=== PATIENT | female | born 1980 | race Caucasian/White ===

== ENCOUNTER 2025-05-17 10:45 | Outpatient (AMB) | payer OTHER, SELFPAY ==
--- NOTE | 2025-05-17 10:50 | MHC.PC.OV ---
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: No Accompanied by: Self / Same As Patient Allergies erythromycin base (From Erythrocin) Allergy (Mild, Verified 05/17/25 10:57) Hives Tobacco use date assessed: 05/17/25 Dental Screening Dental Screen Date: 05/17/25 Did you have a dental visit in the last 12 months?: Yes Did you have a dental problem in the last 6 months where you did not have access to dental care?: No Was dental information given to patient?: Patient has dentist HPI HPI Comments History of Present Illness Details History of Present Illness The patient is a 44-year-old female presenting with the need for a new primary eye care professional and management of tricompartmental osteoarthritis. Tricompartmental Osteoarthritis of the Left Knee: - The patient reports mild to severe tricompartmental osteoarthritis in the left knee, with persistent pain exacerbated by physical activity. - A CT scan has been performed, but an MRI was not approved by [facility]. - The patient has attempted physical therapy in the past, but the pain persists. - The patient is considering weight loss to alleviate symptoms and has expressed interest in further physical therapy. Perimenopause: - The patient is experiencing perimenopausal symptoms and has difficulty losing weight. Suspected Sleep Apnea: - The patient reports waking up gasping for air, experiencing daytime fatigue, and headaches, suggesting possible sleep apnea. - A home sleep study has been recommended to confirm the diagnosis. Class 2 Obesity: - The patient has been diagnosed with class 2 obesity and is struggling with weight loss. - Referral to a post acute care nurse practitioner has been suggested to aid in weight management. Review of Systems - Musculoskeletal: Reports persistent left knee pain due to tricompartmental osteoarthritis. - Neurological: Reports waking up gasping for air, experiencing daytime fatigue, and headaches. - Endocrine: Reports difficulty losing weight, possibly related to perimenopause. 10-point ROS reviewed and negative except as noted in HPI Past Medical History - Tricompartmental osteoarthritis of the left knee - Perimenopause - Suspected sleep apnea - Class 2 obesity Health Maintenance - Mammogram screening recommended for preventative care. - Referral to a post acute care nurse practitioner for weight management and dietary guidance. - Home sleep study recommended to evaluate for sleep apnea. Physical Exam General: Well-appearing, in no acute distress. Vital signs: Within normal limits. HEENT: Normocephalic, atraumatic. PERRLA, EOMI. Conjunctiva clear, sclera anicteric. Oropharynx clear, mucous membranes moist. TMs intact bilaterally. Neck: Supple, no lymphadenopathy, no thyromegaly, no JVD or carotid bruits. Cardiovascular: RRR, normal S1/S2, no murmurs, rubs, or gallops. Peripheral pulses 2+ and symmetric. No edema. Respiratory: Lungs clear to auscultation bilaterally, no wheezes, rales, or rhonchi. Normal effort. Abdomen: Soft, non-tender, non-distended. Normoactive bowel sounds. No hepatosplenomegaly, no masses. MSK: Full range of motion, no joint swelling or deformity. Normal gait. Left knee with mild to severe tricompartmental osteoarthritis, chronic pain. Skin: Warm, dry, intact. No rashes, lesions, or pallor. Neuro: Alert and oriented x3. Cranial nerves II-XII intact. Strength 5/5 throughout. Sensation intact. Reflexes 2+ symmetric. Normal coordination and gait. Psych: Appropriate mood and affect. Normal judgment and insight. Reports fatigue and daytime sleepiness, possible sleep apnea. Plan 1. Tricompartmental Osteoarthritis Of The Left Knee - Plan includes obtaining an x-ray of the left knee and physical therapy to manage symptoms. 2. Perimenopause - no complaints 3. Suspected sleep study Complains of morning headaches fatigue during the day lives alone so does not know if she snores but she does say she wakes up gasping for air we will get a home sleep study Discussion Notes During the visit, we discussed the patient's need for a new primary eye care professional and management of her tricompartmental osteoarthritis. We also addressed her concerns about weight loss and potential sleep apnea. I recommended a home sleep study to evaluate for sleep apnea, which could be contributing to her weight management difficulties. Additionally, we discussed the possibility of using GLP-1 receptor agonists for weight loss if sleep apnea is confirmed. The patient was advised to document all health issues for future reference, especially considering her background. Patient was informed and verbally consented to the use of an ambient scribe for clinic note documentation during this visit. Patient Instructions - Schedule a mammogram screening as part of preventative care. - Follow up with a post acute care nurse practitioner for dietary guidance and weight management. - Complete a home sleep study to evaluate for sleep apnea. - Consider physical therapy for left knee osteoarthritis management. [facility] Medical History (Updated 05/17/25 @ 11:44 by Montana Brown MD) Knee pain Left knee pain Osteoarthritis Class 2 obesity Snoring Fatigue Family History (Updated 05/17/25 @ 10:58 by Angella Salinas MA) Father Diabetes Cancer Mother No problems noted. Social History (Updated 05/17/25 @ 10:59 by Angella Salinas MA) Housing: Condominium Alcohol intake: current Alcohol intake frequency: does not drink Patient Tobacco Use Status: Never used Tobacco service: Yes Current occupational status: employed Cognitive needs: No Hearing needs: No Vision needs: No Questionnaire PHQ-9 Over the last 2 weeks, how often have you been bothered by any of the following problems? 1. Little interest or pleasure in doing things: not at all 2. Feeling down, depressed, or hopeless: not at all 3. Trouble falling or staying asleep, or sleeping too much: not at all 4. Feeling tired or having little energy: several days 5. Poor appetite or overeating: nearly every day 6. Feeling bad about yourself - or that you are a failure or have let yourself or your family down: not at all 7. Trouble concentrating on things, such as reading the newspaper or watching television: not at all 8. Moving or speaking so slowly that other people could have noticed. Or the opposite - being so fidgety or restless that you have been moving around a lot more than usual: not at all 9. Thoughts that you would be better off or of hurting yourself in some way: not at all Total score: 4 Depression Screening Interpretation: Negative Depression Screening Done: Yes Source: Developed by Drs. Loy Jim, Cristiane Flowers, Luis Hutchinson and colleagues, with an educational luca from [employer]. Thrive Questionnaire Date Thrive assessed: 05/17/25 I am a: Patient What is your living situation today?: I have a steady place to live Within the past 12 months, did the food you bought not last and you didn't have the money to get more?: Never true Within the past 12 months, did you worry whether your food would run out before you got money to buy more?: Never true Do you have trouble paying for medicines?: No Do you have trouble getting transportation to medical appointments?: No Do you have trouble paying your heating and electricity bill?: No Do you have trouble taking care of your child, family member or friend?: No Are you currently unemployed and looking for a job?: No Are you interested in more education?: No Please select the resources that you would like help with: None Currently or been in a relationship where the following occur: I choose not to answer THRIVE Score: 0 AUDIT C Alcohol Use Questionnaire (AUDIT-C) 1. How often do you have a drink containing alcohol?: Never Total Score: 0 Score Reviewed/Action Taken: No SILVINA-7 AMB Questionnaire SILVINA-7 Date SILVINA - 7 assessed: 05/17/25 Feeling nervous, anxious, or on edge: 1 = Several days Not being able to stop or control worryin = Several days Worrying too much about different things: 1 = Several days Trouble relaxin = Several days Being so restless that it is hard to sit still: 1 = Several days Becoming easily annoyed or irritable: 2 = More than half the days Feeling afraid as if something awful might happen: 0 = Not at all Total SILVINA-7 score (0-4 normal; 5-9 mild; 10-14 moderate; 15-21 severe): 7 Source: Developed by Drs. Loy Jim, Cristiane Flowers, Luis Hutchinson and colleagues, with an educational luca from [employer]. Physical exam (Primary Care) Vital Signs: Last Vital Signs Temp 97.9 F 05/17/25 10:56 Pulse 78 05/17/25 10:56 Resp 16 05/17/25 10:56 BP 124/77 05/17/25 10:56 Pulse Ox 97 05/17/25 10:56 Oxygen Delivery Method Room Air 05/17/25 10:56 BMI result Body Mass Index 36.5 Tobacco/Smoking Status: Tobacco use Status Tobacco use date assessed 05/17/25 05/17/25 10:56 Patient Tobacco Use Status Never used Tobacco 05/17/25 10:59 PHQ-9: PHQ-9 Score PHQ-9: Total score 4 05/17/25 10:56 Depression Screening Interpretation: Negative Thrive Assessment: Date of Thrive Assessment Date Thrive assessed 05/17/25 05/17/25 10:56 Currently or been in a relationship where the following occur: I choose not to answer Coding Level of Care Code New Pt Level 3 (94941) Diagnoses Encounter to establish care Z76.89 Encounter for screening, unspecified Z13.9 Counseling, unspecified Z71.9 Screening for hypertension Z13.6 Screening for diabetes mellitus Z13.1 Screening for lipoid disorders Z13.220 Screening for depression Z13.31 Screening for HIV (human immunodeficiency virus) Z11.4 Routine screening for STI (sexually transmitted infection) Z11.3 Class 2 obesity E66.812 Fatigue R53.83 Snoring R06.83 Osteoarthritis M19.90 Left knee pain M25.562 Encounter for screening mammogram for breast cancer Z12.31 Assessment & Plan Assessment & Plan (1) Encounter to establish care: Code(s): Z76.89 - Persons encountering health services in other specified circumstances (2) Encounter for screening, unspecified: Code(s): Z13.9 - Encounter for screening, unspecified (3) Counseling, unspecified: Code(s): Z71.9 - Counseling, unspecified (4) Screening for hypertension: Code(s): Z13.6 - Encounter for screening for cardiovascular disorders (5) Screening for diabetes mellitus: Code(s): Z13.1 - Encounter for screening for diabetes mellitus (6) Screening for lipoid disorders: Code(s): Z13.220 - Encounter for screening for lipoid disorders (7) Screening for depression: Code(s): Z13.31 - Encounter for screening for depression (8) Screening for HIV (human immunodeficiency virus): Code(s): Z11.4 - Encounter for screening for human immunodeficiency virus [HIV] (9) Routine screening for STI (sexually transmitted infection): Code(s): Z11.3 - Encounter for screening for infections with a predominantly sexual mode of transmission (10) Class 2 obesity: Code(s): E66.812 - Obesity, class 2 Category: Medical (11) Fatigue: Code(s): R53.83 - Other fatigue Category: Medical (12) Snoring: Code(s): R06.83 - Snoring Category: Medical (13) Osteoarthritis: Code(s): M19.90 - Unspecified osteoarthritis, unspecified site Category: Medical (14) Left knee pain: Code(s): M25.562 - Pain in left knee Category: Medical (15) Encounter for screening mammogram for breast cancer: Code(s): Z12.31 - Encounter for screening mammogram for malignant neoplasm of breast Plan Orders: Orders Comprehensive Met. Panel Today Z13.9 - Encounter for screening, unspecified, Z76.89 - Persons encountering health services in other specified circumstances Hepatitis B Surface Antigen Today Z13.9 - Encounter for screening, unspecified, Z76.89 - Persons encountering health services in other specified circumstances Hepatitis C Antibody Today Z13.9 - Encounter for screening, unspecified, Z76.89 - Persons encountering health services in other specified circumstances Lipid Panel Today Z13.9 - Encounter for screening, unspecified, Z76.89 - Persons encountering health services in other specified circumstances HIV Ab/Ag Today Z13.9 - Encounter for screening, unspecified, Z76.89 - Persons encountering health services in other specified circumstances MM screening mammo BI Today Z12.31 - Encounter for screening mammogram for malignant neoplasm of breast PT Evaluation and Treatment Today M25.562 - Pain in left knee XR knee LT 2V Today E66.812 - Obesity, class 2, M19.90 - Unspecified osteoarthritis, unspecified site, M25.569 - Pain in unspecified knee Complete Blood Count Auto Diff Today Z13.9 - Encounter for screening, unspecified, Z76.89 - Persons encountering health services in other specified circumstances Hemoglobin A1c Today Z13.9 - Encounter for screening, unspecified, Z76.89 - Persons encountering health services in other specified circumstances Hepatitis B Surface Antibody Today Z13.9 - Encounter for screening, unspecified, Z76.89 - Persons encountering health services in other specified circumstances UA CC w/rflx Micro + Cult Today Z13.9 - Encounter for screening, unspecified, Z76.89 - Persons encountering health services in other specified circumstances Vitamin B12 and Folate Today Z13.9 - Encounter for screening, unspecified, Z76.89 - Persons encountering health services in other specified circumstances Vitamin D 1,25 dihydroxy Today Z13.9 - Encounter for screening, unspecified, Z76.89 - Persons encountering health services in other specified circumstances RT home sleep study Today E66.812 - Obesity, class 2, R06.83 - Snoring, R53.83 - Other fatigue Referrals Nutrition/Dietitian Referral E66.812 - Obesity, class 2
[2025-05-17 10:56] VITALS: BP 124/77; PULSE 78; RESP 16; TEMP 36.6; O2SAT 97; BMI 36.5
== END 2025-05-17 11:50 | disposition home or self-care (01) ==
LOC: HO.HMCFMS 10:46
PROVIDERS: Visit Provider Student in an Organized Health Care Education/Training Program
DX: M25.562 Pain in left knee (principal); R53.83 Other fatigue; E66.812 Obesity, class 2; Z68.36 Body mass index [BMI] 36.0-36.9, adult; R06.83 Snoring

== ENCOUNTER 2025-05-17 10:45 | Outpatient (REF) | payer OTHER, SELFPAY ==
--- OUTSIDE RECORDS SUMMARY | 2025-05-17 16:55 | XMS_ITS | Encounter Summary ---
Author Organization Formerly [facility] Address [address] [place] [address] Care Team Providers Care Instrumental Musician Name Role Phone Kellee Mccarthy Primary Care Provider Brigette Rodgers APRN Primary Care Provider [phone] Sobeida Man MD Unavailable [phone] Pcp, No Primary Care Provider Unavailabl e Reason for Visit * Reason Onset Date Comments Call Patient 07/21/2017 Encounter Details Date Type Department Care Team (Late st Contact Info) Description 07/21/2017 Telephone 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 PT states she have not taken medication since 5PM last night (Gabapentin and Robaxin). Pt states she is not having any SOB, no slurred speech or chest pain. Discussed with Dr. Morrell advisedpatient to go to the ER to be evaluated. Pt verbalized understanding and agreed. * Telephone Encounter - Windy Solares LPN - 07/21/2017 10:33 AM EST Returned patient call, no answer- LMTCB. * Telephone Encounter - Abby To - 07/21/2017 9:37 AM EST Patient is wondering if she can get a call back in reference to her shingles in her left arm she isgetting tingling sensations on the left side of her face. Patient wants a call back for suggestion to treatment at this time. Pain is at a pain level of 5 right now please call this patient back. documented in this encounter Plan of Treatment Not on file documented as of this encounter Visit Diagnoses Not on filedocumented in this encounter Care Teams Instrumental Musician Relationship Specialty Start Date End Date Kellee Mccarthy PA PCP - General Internal Medicine 01/19/17 11/23/17 Brigette Rodgers APRN [address] [facility] [address] [place] [address] PCP - General Family Medicine 11/24/17 11/30/24 Pcp, No PCP - General General Medicine 05/08/25 Sobeida Man MD [address] [place] [phone] (work) Independent Living Specialist Obstetrics and Gynecology 03/23/19 documented as of this encounter
--- OUTSIDE RECORDS SUMMARY | 2025-05-17 16:55 | XMS_ITS | Clinical Summary ---
Author Organization [facility] Address [address] [place] [address] Care Team Providers Care Salesperson Burial Plots Name Role Phone Sobeida Man MD Unavailable [phone] Pcp, No Primary Care Provider Unavailabl e Allergies Active Allergy Reactions Criticality Noted Date Comments Erythromycin Hives Medium 09/05/2015 Medications multivitamin Tab tablet Take 1 tablet by mouth daily. Active cholecalciferol (VITAMIN D3) 1000 units tablet Take 2,000 Units by mouth daily. Active b complex vitamins capsule Take 1 capsule by mouth daily. Active Biotin 3 MG Tab Take 1 tablet by mouth daily. Active [place] 3 1000 MG Cap capsule Take 1,000 mg by mouth daily. Administer whole. Do not break. Active Magnesium 200 MG Chew Tab Chew. Active norethindrone-ethi nyl estradiol-iron (Lo Loestrin Fe) 1 mg-10 mcg / 10 mcg tablet Lo Loestrin Fe 1 mg-10 mcg (24)/10 mcg (2) tablet Active diclofenac (CATAFLAM) 50 MG tabletIndications: Osteoarthritis of left knee, unspecified osteoarthritis type Take 1 tablet (50 mg total) by mouth 3 (three) times a day. 30 tablet 2 Active Active Problems Problem Noted Date Diagnosed Date Overweight 08/27/2014 Pain in joint, lower leg 07/26/2014 Encounters Date Type Department Care Team Description 05/08/2025 Telephone [facility] [address] [place] [address] Pcp, No Appointment from Last 3 Months Immunizations Immunization Administration Dates Next Due Covid-19 mRNA Primary Series Vaccine - Moderna 0.5 mL Full Dose 07/29/2021 Influenza, Unspecified 07/06/2020 Td 03/20/2018 Family History Medical History Relation Name Comments Heart disease Father Hyperlipidemia Father Hypertension Father Alcohol abuse Mother Relation Name Status Comments Father Mother Social History Tobacco Use Types Packs/Day Years Used Date Smoking Tobacco: Former Cigarettes 0.3 15 1 - 06/21/2018 Smokeless Tobacco: Never Alcohol Use Standard Drinks/Week Comments Yes 3 (1 standard drink = 0.6 oz pur e alcohol) Comments No Sex and Gender Information Value Date Recorded Sex Assigned at Not on file Legal Sex Female 3:12 PM EDT Gender Identity Not on file Sexual Orientation Not on file 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 Not on file Last Filed Vital Signs Vital Sign Reading Time Taken Comments Blood Pressure 128/84 02/03/2022 10:11 AM EDT Pulse 84 02/03/2022 10:11 AM EDT Temperature 36.2 C (97.1 F) 02/03/2022 10:11 AM EDT Respiratory Rate 16 02/03/2022 10:11 AM EDT Oxygen Saturation 99% 02/03/2022 10:11 AM EDT Inhaled Oxygen Concentration - - Weight 92.1 kg (203 lb) 02/03/2022 10:11 AM EDT Height 157.5 cm (5' 2 ) 02/03/2022 10:11 AM EDT Body Mass Index 37.13 02/03/2022 10:11 AM EDT Plan of Treatment Health Maintenance Due Date Last Done Comments Hepatitis C Virus Screening 1982 HIV Screening 1995 Hepatitis B Vaccines (1 of 3 - 19+ 3-dose series) 2001 HPV Vaccines (1 - 3-dose SCD M series) 2009 DTaP/Tdap/Td Vaccines (1 - Tdap) 03/21/2018 03/20/2018 Mammogram 2022 Pap Smear (Ages 21-65) 10/16/2024 10/16/2021 Influenza Vaccine 03/23/2025 07/06/2020 COVID-19 Vaccine (3 - 2024-2 6 season) 2025 07/29/2021, 12/31/2020 Pneumococcal Vaccine: Pediatric (0-5 Years) and At-Risk Patients (6 to 49 Years) Aged Out No longer eligible b ased on patient's age to complete this topic Procedures Procedure Name Priority Date/Time Associated Diagnosis Comments THINPREP PAP(CARDIOLOGY CONSULTANT) HPV SCR RFX HPV 16,18/45 Routine 10/16/2021 12:00 AM EST from Last 3 Months or Most Recently Relevant to Health Maintenance Results * ThinPrep Pap(Cobbler Upper) HPV Scr Rfx HPV 16,18/45 (10/16/2021 12:00 AM EST) Report Report [facility] Comment: Final Gynecological Cytology Report ThinPrep Pap Test, HPV Screen, Reflex HPV Genotype SPECIMEN ADEQUACY: SATISFACTORY FOR EVALUATION; ENDOCERVICAL/TRANSFORMATION ZONE COMPONENT ABSENT/INSUFFICIENT . INTERPRETATION: NEGATIVE FOR INTRAEPITHELIAL LESION OR MALIGNANCY. Electronically Signed: Aaron Sr CT (ASCP) CLINICAL INFORMATION: LMP: 09/27/2021 Clinical History: RTN Specimen Source: Cervix, Endocervix HPV RESULTS: HPV mRNA E6/E7 [id number] Approved: 10/18/21 Negative REF RANGE: Negative CPT Codes: 01860 ICD Codes: Z12.4 Other 10/16/2021 10/17/2021 8:0 9 PM EST us Sobeida Man MD LAB AMB PATH/CYTO ORDERABLES Fi nal Result [facility] [address], [place] from Last 3 Months or Most Recently Relevant to Health Maintenance Insurance [facility] Care Teams Salesperson Burial Plots Relationship Specialty Start Date End Date Pcp, No PCP - General General Medicine 05/08/25 Sobeida Man MD [address] [place] [id number] Protection Manager Obstetrics and Gynecology 03/23/19
--- OUTSIDE RECORDS SUMMARY | 2025-05-17 16:55 | XMS_ITS | Encounter Summary ---
Author Organization [address] [address] Care Team Providers Care Patient Observer Name Role Phone Kellee Mccarthy Primary Care Provider [phone] Brigette Rodgers APRN Primary Care Provider [phone] Sobeida Man MD Unavailable [phone] Pcp, No Primary Care Provider Unavailabl e Encounter Details Date Type Department Care Team (Late st Contact Info) Description 07/18/2017 Scanned Document [address] [place] [address] Provider, Generic Social History Tobacco Use Types Packs/Day Years Used Date Smoking Tobacco: Former Alcohol Use Standard Drinks/Week Comments Yes 0 (1 standard drink = 0.6 oz pur e alcohol) Comments Unknown Sex and Gender Information Value Date Recorded Sex Assigned at Not on file Legal Sex Female 3:12 PM EDT Gender Identity Not on file Sexual Orientation Not on file 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 Not on file documented as of this encounter Plan of Treatment Not on file documented as of this encounter Visit Diagnoses Not on filedocumented in this encounter Care Teams Patient Observer Relationship Specialty Start Date End Date Kellee Mccarthy PA PCP - General Internal Medicine 01/19/17 11/23/17 Brigette Rodgers APRN [address] [place] [address] PCP - General Family Medicine 11/24/17 11/30/24 Pcp, No PCP - General General Medicine 05/08/25 Sobeida Man MD [address] [place] [id number] Perishable Fruit Inspector Obstetrics and Gynecology 03/23/19 documented as of this encounter
--- OUTSIDE RECORDS SUMMARY | 2025-05-17 16:55 | XMS_ITS | Encounter Summary ---
Author Organization [facility] Address [address] [place] [id number] Care Team Providers Care Cognos Lead Name Role Phone Sobeida Man MD Unavailable [phone] Pcp, No Primary Care Provider Unavailabl e Reason for Visit * Reason Onset Date Comments Appointment 05/08/2025 Encounter Details Date Type Department Care Team (Late st Contact Info) Description 05/08/[address] [address] Pcp, No Appointment Social History Tobacco Use Types Packs/Day Years [...] on filedocumented in this encounter Care Teams Cognos Lead Relationship Specialty Start Date End Date Pcp, No PCP - General General Medicine 05/08/25 Sobeida Man MD [address] [place] [id number] [address] Rander Obstetrics and Gynecology 03/23/19 documented as of this encounter
--- OUTSIDE RECORDS SUMMARY | 2025-05-17 16:55 | XMS_ITS ---
Author Name [facility] Organization Unknown Encounters Encounter Type Encounter Reason Primary Diagnosis Location Date Ambulatory Pain in left knee [facility] 02/03/2022 [facility] 10/16/2021 Care Team Organization Name Specialty Phone Email Start Date End [facility] NO PCP Primary Care 05/08/2025 [facility] Not Found Primary Care 09/12/2023 [facility] 06/29/2023 12/21/2024 [facility] Brigette Rodgers NP Primary Care 02/03/2022 022 [facility] Brigette Rodgers Primary Care 02/03/2022 [facility] 10/20/2021 04/10/2024 [facility] 10/16/2021 10/16/2021
--- OUTSIDE RECORDS SUMMARY | 2025-05-17 16:55 | XMS_ITS | Clinical Summary ---
Author Organization [facility] Address [address] [place], [place] [id number] Care Team Providers Care Technician Trainee Name Role Phone Unavailable Primary Care Provider Unavailabl e Social History Tobacco Use Types Packs/Day Years Used Date Smoking Tobacco: Never Assessed Sex and Gender Information Value Date Recorded Sex Assigned at Not on file Gender Identity Not on file Sexual Orientation Not on file Plan of Treatment Not on file
[2025-05-17 17:56] LABS: MANUAL DIFF FLAG NO
[2025-05-17 18:11] LABS: Appearance Urine Clear; Glucose Urine UA Negative (Negative); Hematocrit 41.1 % (37.0-47.0); Hemoglobin 13.9 g/dl (12.0-16.0); Imm Gran Abs Auto 0.02 X10*3/uL (0.00-0.03); Imm Gran Pct Auto 0.2 % (0.0-0.4); Lymphocytes Absolute Auto 2.2 X10*3/uL (1.2-4.9); Mean Corpuscular HGB Conc 33.8 g/dl (31.0-35.0); Mean Corpuscular Hemoglobin 29.8 pg (27.0-33.0); Mean Corpuscular Volume 88.0 fL (80.0-98.0); NRBC Abs Auto 0.000 X10*3/uL (0.0-0.012); NRBC Pct Auto 0.0 /100WBC (0.0-0.2); PH 6.5 (5.0-9.0); Platelet Count 326 X10*3/uL (160-400); Red Blood Count 4.67 X10*6/uL (4.20-5.50); Specific Gravity - Urine <= 1.005 (1.005-1.025); White Blood Count 8.7 X10*3/uL (4.8-10.8)
[2025-05-17 18:14] LABS: Total Hemoglobin (HGBA1C) 3605.8882 umol/L
[2025-05-17 18:35] LABS: Alanine Aminotransferase 28 U/L (0-31); Albumin Level 4.5 g/dL (3.5-5.0); Alkaline Phosphatase 77 U/L (39-117); Anion Gap 12 (12-20); Aspartate Amino Transferase 29 U/L (5-31); Blood Urea Nitrogen 13 mg/dL (9-16); Calcium 9.5 mg/dL (8.4-10.2); Carbon Dioxide 27 mmol/L (22-29); Chloride 106 mmol/L (96-108); Cholesterol 201 mg/dL (<200); Estimated Glomerular Filt Rate > 60; HDL Cholesterol 55 mg/dL (>40); Potassium 4.7 mmol/L (3.3-5.1); Sodium 140 mmol/L (135-145); Total Protein 7.3 g/dL (6.5-8.0); Triglycerides 115 mg/dL (<150)
[2025-05-17 19:04] LABS: Folate 7.1 ng/mL (> or = 4.0); Vitamin B12 1418 pg/mL (200-900)
[2025-05-18 08:43] LABS: HBS Num1 2.63 mIU/mL (0-7.99); HBsAGNum1 0.36 S/CO (0.00-0.99); HIV Num 1 0.09 S/CO (0.00-0.99); Hepatitis B Surface Antigen Negative (Negative); ~HepC Num1 0.09 S/CO (0.00-0.79); ~Hepatitis B Surface Antibody NONREACTIVE (Nonreactive); ~Hepatitis C Antibody Nonreactive (Nonreactive)
[2025-05-21 19:33] LABS: VITAMIN D (1,25 OH) D3 69 pg/mL; Vit D (1,25-Dihydroxy) Total 69 pg/mL (18-72); Vitamin D (1,25 OH) D2 <8 pg/mL
== END 2025-05-17 10:46 | disposition home or self-care (01) ==
LOC: HO.HKASLDS 10:45
PROVIDERS: Visit Provider Student in an Organized Health Care Education/Training Program
DX: Z76.89 Persons encountering health services in other specified circumstances (principal); Z11.4 Encounter for screening for human immunodeficiency virus [HIV]; Z13.1 Encounter for screening for diabetes mellitus; R53.83 Other fatigue; R06.83 Snoring; E66.812 Obesity, class 2; M25.562 Pain in left knee; M25.569 Pain in unspecified knee; M19.90 Unspecified osteoarthritis, unspecified site; Z68.36 Body mass index [BMI] 36.0-36.9, adult; Z71.3 Dietary counseling and surveillance
CPT/HCPCS: 36415; 80053; 80061; 81003; 82607; 82652; 82746; 83036; 85025; 86706; 86803; 87340; 87389; 99202

== ENCOUNTER 2025-05-31 13:47 | Outpatient (AMB) | payer OTHER, SELFPAY ==
[2025-05-31 13:49] VITALS: BP 122/76; PULSE 72; TEMP 36.8; O2SAT 97; BMI 35.9
--- NOTE | 2025-05-31 13:49 | MHC.PC.OV ---
Vital Signs 05/31/25 13:49 Height 5 ft 1.81 in Weight 195 lb BMI 35.9 BP 122/76 Blood Pressure Location Rt brachial Position Sitting Pulse 72 Pulse Source Pulse Oximeter Temp 98.2 F Temp Source Oral Pulse Oximetry (%) 97 Oxygen Delivery Method Room Air Intake Visit Reasons: 2 wk f/u Sales Marketing Coordinator Required: No Accompanied by: Self / Same As Patient Allergies erythromycin base (From Erythrocin) Allergy (Mild, Verified 05/31/25 13:49) Hives Tobacco use date assessed: 05/31/25 Dental Screening Dental Screen Date: 05/31/25 Did you have a dental visit in the last 12 months?: Yes Did you have a dental problem in the last 6 months where you did not have access to dental care?: No Was dental information given to patient?: Patient has dentist HPI HPI Comments History of Present Illness Details History of Present Illness The patient is a 44-year-old female presenting for a follow-up on lab results and weight management. Hyperlipidemia: - Cholesterol level is 201 mg/dL, slightly above the desired level of below 200 mg/dL. - LDL cholesterol is 123 mg/dL, which should be below 100 mg/dL. Elevated Vitamin B12 levels: - Vitamin B12 level is 1418 pg/mL, elevated due to supplements. Obstructive Sleep Apnea (suspected): - Home sleep study pending to confirm diagnosis. Weight management: - Considering GLP-1 receptor agonists and taking natural peptides. - Referred to medical weight clinic for comprehensive weight loss approach. Review of Systems - General: Denies fatigue, reports good overall health. - Cardiovascular: Denies chest pain or palpitations. - Respiratory: Denies dyspnea or cough. - Neurological: Denies headaches or dizziness. 10-point ROS reviewed and negative except as noted in HPI Past Medical History Health Maintenance - Mammogram scheduled for next month. - Home sleep study pending. - Data Abstractor appointment scheduled for July. Physical Exam General: Well-appearing, in no acute distress. Vital signs: Within normal limits. HEENT: Normocephalic, atraumatic. PERRLA, EOMI. Conjunctiva clear, sclera anicteric. Oropharynx clear, mucous membranes moist. TMs intact bilaterally. Neck: Supple, no lymphadenopathy, no thyromegaly, no JVD or carotid bruits. Cardiovascular: RRR, normal S1/S2, no murmurs, rubs, or gallops. Peripheral pulses 2+ and symmetric. No edema. Respiratory: Lungs clear to auscultation bilaterally, no wheezes, rales, or rhonchi. Normal effort. Abdomen: Soft, non-tender, non-distended. Normoactive bowel sounds. No hepatosplenomegaly, no masses. MSK: Full range of motion, no joint swelling or deformity. Normal gait. Skin: Warm, dry, intact. No rashes, lesions, or pallor. Neuro: Alert and oriented x3. Cranial nerves II-XII intact. Strength 5/5 throughout. Sensation intact. Reflexes 2+ symmetric. Normal coordination and gait. Psych: Appropriate mood and affect. Normal judgment and insight. Plan 1. Hyperlipidemia - Monitor cholesterol levels and consider lifestyle modifications to reduce LDL cholesterol. 2. Elevated Vitamin B12 Levels - Continue monitoring B12 levels; no immediate concern due to water-soluble nature of vitamin. 3. Obstructive Sleep Apnea (Suspected) - Complete home sleep study to confirm diagnosis and determine further management. 4. Weight Management - Continue current regimen of natural peptides; monitor for side effects. - Attend medical weight clinic for comprehensive weight management plan. Discussion Notes During the visit, we discussed the patient's lab results, including elevated cholesterol and Vitamin B12 levels. I explained that the elevated B12 is not a concern due to its water-soluble nature. We also talked about the importance of completing the home sleep study to assess for obstructive sleep apnea. The patient is considering GLP-1 receptor agonists for weight management and has been referred to a medical weight clinic for a comprehensive approach. We discussed the potential side effects of GLP-1 and the importance of maintaining a balanced diet and exercise regimen. Patient was informed and verbally consented to the use of an ambient scribefor clinic note documentation during this visit. Patient Instructions - Continue taking current supplements and monitor for any side effects. - Complete the home sleep study as scheduled. - Attend the scheduled booth cleaner appointment in July. - Follow up with the medical weight clinic for a comprehensive weight management plan. Total time spent caring for the patient today was 30 minutes. This includes time spent before the visit reviewing the chart, time spent documenting, and time spent reviewing laboratory results, diagnostic imaging, medications, performing a medically necessary evaluation, counseling on diagnoses, care coordination, ordering appropriate tests, ordering appropriate medications. COUNT INCLUDES THE [facility] Medical History Knee pain Left knee pain Osteoarthritis Class 2 obesity Snoring Fatigue Family History Father Diabetes Cancer Mother No problems noted. Social History Housing: Condominium Alcohol intake: current Alcohol intake frequency: does not drink Patient Tobacco Use Status: Never used Tobacco service: Yes Current occupational status: employed Cognitive needs: No Hearing needs: No Vision needs: No Questionnaire PHQ-9 Over the last 2 weeks, how often have you been bothered by any of the following problems? 1. Little interest or pleasure in doing things: not at all 2. Feeling down, depressed, or hopeless: not at all 3. Trouble falling or staying asleep, or sleeping too much: not at all 4. Feeling tired or having little energy: several days 5. Poor appetite or overeating: nearly every day 6. Feeling bad about yourself - or that you are a failure or have let yourself or your family down: not at all 7. Trouble concentrating on things, such as reading the newspaper or watching television: not at all 8. Moving or speaking so slowly that other people could have noticed. Or the opposite - being so fidgety or restless that you have been moving around a lot more than usual: not at all 9. Thoughts that you would be better off or of hurting yourself in some way: not at all Total score: 4 Depression Screening Interpretation: Negative Depression Screening Done: Yes Source: Developed by Drs. Loy Jim, Cristiane Flowers, Luis Hutchinson and colleagues, with an educational luca from [employer]. Thrive Questionnaire Date Thrive assessed: 05/31/25 I am a: Patient What is your living situation today?: I have a steady place to live Within the past 12 months, did the food you bought not last and you didn't have the money to get more?: Never true Within the past 12 months, did you worry whether your food would run out before you got money to buy more?: Never true Do you have trouble paying for medicines?: No Do you have trouble getting transportation to medical appointments?: No Do you have trouble paying your heating and electricity bill?: No Do you have trouble taking care of your child, family member or friend?: No Are you currently unemployed and looking for a job?: No Are you interested in more education?: No Please select the resources that you would like help with: None Currently or been in a relationship where the following occur: I choose not to answer THRIVE Score: 0 AUDIT C Alcohol Use Questionnaire (AUDIT-C) 1. How often do you have a drink containing alcohol?: Never Total Score: 0 Score Reviewed/Action Taken: No SILVINA-7 AMB Questionnaire SILVINA-7 Date SILVINA - 7 assessed: 05/31/25 Feeling nervous, anxious, or on edge: 1 = Several days Not being able to stop or control worryin = Several days Worrying too much about different things: 1 = Several days Trouble relaxin = Several days Being so restless that it is hard to sit still: 1 = Several days Becoming easily annoyed or irritable: 2 = More than half the days Feeling afraid as if something awful might happen: 0 = Not at all Total SILVINA-7 score (0-4 normal; 5-9 mild; 10-14 moderate; 15-21 severe): 7 Source: Developed by Drs. Loy Jim, Cristiane Flowers, Luis Hutchinson and colleagues, with an educational luca from [employer]. Physical exam (Primary Care) Vital Signs: Last Vital Signs Temp 98.2 F 05/31/25 13:49 Pulse 72 05/31/25 13:49 BP 122/76 05/31/25 13:49 Pulse Ox 97 05/31/25 13:49 Oxygen Delivery Method Room Air 05/31/25 13:49 BMI result Body Mass Index 35.9 Tobacco/Smoking Status: Tobacco use Status Tobacco use date assessed 05/31/25 05/31/25 13:55 Patient Tobacco Use Status Never used Tobacco 05/31/25 13:55 PHQ-9: PHQ-9 Score PHQ-9: Total score 4 05/31/25 13:55 Depression Screening Interpretation: Negative Thrive Assessment: Date of Thrive Assessment Date Thrive assessed 05/31/25 05/31/25 13:55 Currently or been in a relationship where the following occur: I choose not to answer Coding Level of Care Code Est Pt Level 4 (14028) Diagnoses Hyperlipidemia E78.5 Elevated vitamin B12 level R79.89 Obstructive sleep apnea G47.33 Assessment & Plan Assessment & Plan (1) Hyperlipidemia: Code(s): E78.5 - Hyperlipidemia, unspecified (2) Elevated vitamin B12 level: Code(s): R79.89 - Other specified abnormal findings of blood chemistry (3) Obstructive sleep apnea: Code(s): G47.33 - Obstructive sleep apnea (adult) (pediatric) Plan Orders: Referrals Medical Weight Management Referral E66.812 - Obesity, class 2
== END 2025-05-31 14:16 | disposition home or self-care (01) ==
LOC: HO.HMCFMS 13:48
PROVIDERS: PCP Student in an Organized Health Care Education/Training Program; Visit Provider Student in an Organized Health Care Education/Training Program
DX: E78.5 Hyperlipidemia, unspecified (principal); R79.89 Other specified abnormal findings of blood chemistry; G47.33 Obstructive sleep apnea (adult) (pediatric)

== ENCOUNTER → 2025-05-31 13:47 | Outpatient (BNVA) | payer OTHER, SELFPAY | PROVIDERS: Visit Provider Student in an Organized Health Care Education/Training Program | DX: E78.5 Hyperlipidemia, unspecified (principal); R79.89 Other specified abnormal findings of blood chemistry; G47.33 Obstructive sleep apnea (adult) (pediatric); Z13.31 Encounter for screening for depression; Z13.39 Encounter for screening examination for other mental health and behavioral disorders | CPT/HCPCS: 96127; 99212 ==

== ENCOUNTER 2025-07-04 14:51 | Outpatient (REF) | payer OTHER, SELFPAY ==
--- OUTSIDE RECORDS SUMMARY | 2025-07-04 18:14 | XMS_ITS | Data Portability ---
Author Organization [place] - [facility], [facility] Address [address] [place] [address] Assessment No assessment recorded. Plan of Treatment Reminders Order Date Submit Date Provider Last Modified By Organization Details Last Modified Time Details Appointments None record ed. Lab urinal ysis, dipsti ck 2021 022 [email or web address] on In-Office Order, Internal Use Only DO Not Attach Compendium DO Not Attach Compendium, Do Not Delete/merge, [id number] 2 15:50:34 pap, IG + HPV 2021 022 [facility], later [facility], [address] [place], [address] 2 08:06:31 pregna ncy test, urine 2019 020 [email or web address] on In-Office Order, Internal Use Only DO Not Attach Compendium DO Not Attach Compendium, Do Not Delete/merge, [id number] 0 15:25:02 urinal ysis, dipsti ck 2018 019 [email or web address] on In-Office Order, Internal Use Only DO Not Attach Compendium DO Not Attach Compendium, Do Not Delete/merge, [id number] 9 08:52:47 Referral None record ed. Procedures None record ed. Surgeries None record ed. Imaging None record ed. Medication Orders 09/11 (28) 1 mg-20 mcg (21)/7 5 mg (7) tablet 11/03/ 2020 11/03/2 020 [email or web address] on [id number], [address], [place], [address], 0 15:30:16 Patient TargetsNo targets recorded. Patient Instructions Encounter Date Encounter Id Patient Instructions Last Modified By Organization Details Last Modified Time 10/27/2018 [id number] implant for control: care instructions [email or web address] Not available 10/28/2018 11:49:32 04/27/2019 [id number] control counseling rbillstromnelson Not available 04/27/2019 14:59:20 07/27/2019 [id number] breast self-exam: care instructions rbillstromnelson Not available 07/28/2019 08:52:47 tips to help you stay healthy rbillstromnelson Not available 07/28/2019 08:52:47 Behavioral health screening completed and reviewed with patient. Negative findings. [email or web address] Not available 07/28/2019 08:50:32 06/25/2020 [id number] secondary amenorrhea: care instructions rbillstromnelson Not available 06/25/2020 15:25:02 Risks of hormonal control reviewed including but not limited to thrombosis, embolism, pulmonary embolism, stroke, disability, sexual dysfunction and . Family history for thrombophilia reviewed. Patient understands that these risks may be increased with smoking. Patient understands that these risks may be increased within using the patch (Ortho-Evra) or the vaginal ring (Nuva-Ring) when compared to oral control pills, especially if they are obese. Risk of bone loss with Depo Provera after 5 years use also reviewed. LARCs (Mirena, Elisa and Nexplanon) reviewed and all questions answered. Barrier methods of contraception also reviewed. Patient opts for: ocp. [email or web address] Not available 06/25/2020 15:30:21 10/16/2021 [id number] breast self-exam: care instructions [email or web address] Not available 10/16/2021 15:50:34 Behavioral health screening completed and reviewed with patient. Negative findings. [email or web address] Not available 10/19/2021 19:40:19 Reason for Referral None Reported. Results Created Date Observation Date Name Description Value Unit Range Abnormal Flag Note LastModifiedBy Organization Detail LastModifiedTime 06/25/20 20 06/25/2020 pregn ramya test, urine Result negati ve Not Available In-Office Order Internal Use Only DO Not Attach Compendium DO Not Attach Compendium, Do Not Delete/merge, [id number] 06/25/2020 15:24:55 07/27/20 19 07/27/2019 urina lysis , dipst ick Interpretati on negati ve Not Available In-Office Order Internal Use Only DO Not Attach Compendium DO Not Attach Compendium, Do Not Delete/merge, [id number] 07/27/2019 15:43:30 07/27/20 19 07/27/2019 urina lysis , dipst ick Leukocytes Negati ve Not Available In-Office Order Internal Use Only DO Not Attach Compendium DO Not Attach Compendium, Do Not Delete/merge, [id number] 07/27/2019 15:43:30 07/27/20 19 07/27/2019 urina lysis , dipst ick Nitrite negati ve Not Available In-Office Order Internal Use Only DO Not Attach Compendium DO Not Attach Compendium, Do Not Delete/merge, [id number] 07/27/2019 15:43:30 07/27/20 19 07/27/2019 urina lysis , dipst ick Protein Trace Not Available In-Office Order Internal Use Only DO Not Attach Compendium DO Not Attach Compendium, Do Not Delete/merge, [id number] 07/27/2019 15:43:30 07/27/20 19 07/27/2019 urina lysis , dipst ick Glucose Negati ve Not Available In-Office Order Internal Use Only DO Not Attach Compendium DO Not Attach Compendium, Do Not Delete/merge, [id number] 07/27/2019 15:43:30 10/16/19 22 10/16/2021 HPV MRNA E6/E7 HPV MRNA E6/E7 Negati ve negati ve APTIM A HPV assay detec ts 14 high risk HPV types (HPV 16,18 ,31,3 3,35, 39,45 ,51,5 2,56, 58,59 ,66,6 8). The assay is FDA appro nadine for testi ng ThinP rep liqui d Pap vials but not FDA appro nadine for detec ting HPV in SureP ath liqui d Pap speci mens. In-ho use valid ation has shown the assay can detec t all HPV types from this [facility] e Not Available [facility] [address] [place], [address] 10/21/2021 08:06:29 10/16/19 22 10/16/2021 THINP REP PAP TEST (IMAG ER), HPV SCREE N, REFLE X HPV 16,18 /45 report Report Final Gynec ologi kandice Cytol ogy Repor t ----- ----- ----- ----- ----- ----- ----- ----- ----- ----- ----- ----- ThinP rep Pap Test, HPV Scree n, Refle x HPV Genot ype SPECI MEN ADEQU ACY: SATIS FACTO RY FOR EVALU ATION ; ENDOC ERVIC AL/TR ANSFO RMATI ON ZONE COMPO NENT ABSEN T/INS [facility] IENT . INTER PRETA TION: NEGAT JOSEPH FOR INTRA EPITH KEVAN Hernandez OR DEEJAY GUZMAN . Elect yossi Mckenzie d: Aaron Davison, [place] (ASCP ) ----- ----- ----- ----- ----- ----- ----- ----- ----- ----- ----- ----- CLINI KANDICE INFOR LIDIA N: LMP: 09/27 Clini kandice Histo ry: RTN Speci men [facility] e: Cervi x, Endoc ervix HPV RESUL TS: HPV mRNA E6/E7 33661 [id number] Appro nadine: 10/18 Negat joseph REF RANGE : Negat joseph CPT Codes : 19429 ICD Codes : Z12.4 Not Available [facility] [address] [place], [address] 10/21/2021 08:06:31 10/16/19 22 10/16/2021 urina lysis , dipst ick Interpretati on negati ve Not Available In-Office Order Internal Use Only DO Not Attach Compendium DO Not Attach Compendium, Do Not Delete/merge, [id number] 10/15/2021 10:33:22 10/16/19 22 10/16/2021 urina lysis , dipst ick Leukocytes Negati ve Not Available In-Office Order Internal Use Only DO Not Attach Compendium DO Not Attach Compendium, Do Not Delete/merge, [id number] 10/15/2021 10:33:22 10/16/19 22 10/16/2021 urina lysis , dipst ick Nitrite negati ve Not Available In-Office Order Internal Use Only DO Not Attach Compendium DO Not Attach Compendium, Do Not Delete/merge, [id number] 10/15/2021 10:33:22 10/16/19 22 10/16/2021 urina lysis , dipst ick Protein Negati ve Not Available In-Office Order Internal Use Only DO Not Attach Compendium DO Not Attach Compendium, Do Not Delete/merge, [id number] 10/15/2021 10:33:22 10/16/19 22 10/16/2021 urina lysis , dipst ick Glucose Negati ve Not Available In-Office Order Internal Use Only DO Not Attach Compendium DO Not Attach Compendium, Do Not Delete/merge, [id number] 10/15/2021 10:33:22 Result Notes None recorded. 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 Procedures Surgical History Date Name Laterality Status Provider Name and Address Organization Details Recorded Time 9 J3A-IWM completed MARIANNE FORREST MD [address], [address], [facility] 07/28/2019 08:49:43 9 [id number]-[id number] completed MARIANNE FORREST MD [address], [address], [facility] 07/28/2019 08:49:41 9 Control Implant Removal completed MARIANNE FORREST MD [address], [address] [place] [address], [place], [address], [facility] 04/27/2019 15:00:42 8 Control Implant Insertion completed MARIANNE FORREST MD [address], [address] [place] [address], [place], [address], [facility] 07/29/2018 15:15:48 8 M6A-UJBTA completed MARIANNE FORREST MD [address], [address] [place] [address], [place], [address], [facility] 07/18/2018 10:31:46 8 R5B-FPY completed MARIANNE FORREST MD [address], [address] [place] [address], [address] [place] [address], [facility] 07/18/2018 10:31:41 8 Date of Last Pap Smear completed Shauna Beach [facility] 07/27/2019 14:38:26 7 J7M-IKC completed MARIANNE FORREST MD [address], [address] [place] [address], [address] [place] [address], [facility] 06/21/2017 14:46:20 7 K6I-ARRVOAK completed MARIANNE FORREST MD [address], [address] [place] [address], [address], [facility] 06/21/2017 14:46:18 6 Q3U-JUT completed MARIANNE FORREST MD [address], [address] [place] [address], [address], [facility] 06/15/2016 17:26:32 6 K8J-VLXMD completed MARIANNE FORREST MD [address], [address] [place] [address], [address], [facility] 06/15/2016 17:26:31 6 O2P-HJA completed MARIANNE FORREST MD 175 [facility], [address] [place] [address], [place], [address], [facility] 06/15/2016 17:26:46 6 K6S-[id number] completed MARIANNE FORREST MD 175 [facility], [address] [place] [address], [address] [place] [address], [facility] 06/15/2016 17:26:34 6 E1T-ZGYKNS completed MARIANNE FORREST MD [address] [facility], [address] [place] [address], [address], [facility] 06/15/2016 17:26:28 6 U7Y-[id number] completed MARIANNE FORREST MD 175 [facility], [address] [place] [address], [place], [place], [address] [place] [address], [facility] 06/15/2016 17:26:26 Imaging Results None recorded. Procedure Notes None recorded. Medical Equipment None Reported. Allergies Allergen ID Allergen Name Allergen Category Reaction Reaction Severity Criticality Documentation Date Start Date Code Code System Note Provider Name and Address Organization Details Recorded Time 033405 erythromy raphael medicatio n hives Not available Not available 06/20/20152014 4053 RxNorm REACT ION: HIVES ; Not Available [facility] 5 09:35:05 Medications Name Sig Start Date Stop Date Status Note LastModified by Organization Details LastModified Time ibuprofen 800 mg tablet 07/18 completed Not Available Not Available Not Available valacyclovi r 1 gram tablet 07/28 completed Not Available Not Available Not Available meloxicam 15 mg tablet 06/15 completed Not Available Not Available Not Available carbamazepi ne ER 100 mg tablet,exte nded release,12 hr 07/18 completed Not Available Not Available Not Available prednisone 20 mg tablet 07/18 completed Not Available Not Available Not Available methocarbam ol 750 mg tablet 07/18 completed Not Available Not Available Not Available cephalexin 500 mg capsule 07/27 completed Not Available Not Available Not Available tacrolimus 0.1 % topical ointment 07/18 completed Not Available Not Available Not Available dexamethaso ne 4 mg tablet 07/27 completed Not Available Not Available Not Available metronidazo le 0.75 % topical cream 07/18 completed Not Available Not Available Not Available hydrocodone -homatropin e 5 mg-1.5 mg/5 mL oral solution 07/18 completed Not Available Not Available Not Available gabapentin 300 mg capsule 07/18 completed Not Available Not Available Not Available fluticasone propionate 50 mcg/actuati on nasal spray,suspe nsion 07/18 completed Not Available Not Available Not Available naproxen 500 mg tablet 07/18 completed Not Available Not Available Not Available Junel FE 09/11 (28) 1 mg-20 mcg (21)/75 mg (7) tablet Take 1 tablet every day by oral route for 84 days. 10/15 completed Not Available Not Available Not Available multivitami n active Not Available Not Available Not Available Lo Loestrin Fe 1 mg-10 mcg (24)/10 mcg (2) tablet TAKE 1 TABLET BY MOUTH EVERY DAY 07/28 completed Not Available Not Available Not Available Nexplanon 68 mg subdermal implant Inject 1 implant by subcutane ous route. 07/27 completed Not Available Not Available Not Available Vitals Date Recorded Body height Body mass index (BMI) Body weight Systolic And Diastolic Provider Name and Address Organization Details Last Updated DateTime 10/16/2021 152.4 cm 39.3 kg/m2 09710.07 g 124/88 mm[Hg] Dia Garcia [facility] 10/16/2021 15:31:22 Date Recorded Body height Body mass index (BMI) Body weight Systolic And Diastolic Provider Name and Address Organization Details Last Updated DateTime 10/27/2018 152.4 cm 35.5 kg/m2 43747.81 g 110/82 mm[Hg] Catherine Peralta [facility] 10/27/2018 15:57:33 Date Recorded Body height Body mass index (BMI) Body weight Systolic And Diastolic Provider Name and Address Organization Details Last Updated DateTime 04/27/2019 152.4 cm 35.3 kg/m2 37375.22 g 123/70 mm[Hg] Gaviota Nunez [facility] 04/27/2019 14:27:14 Date Recorded Body height Body mass index (BMI) Body weight Systolic And Diastolic Provider Name and Address Organization Details Last Updated DateTime 06/25/2020 152.4 cm 38.3 kg/m2 62146.1 g 126/68 mm[Hg] Shauna [facility] 06/25/2020 14:16:03 Date Recorded Body height Body mass index (BMI) Body weight Systolic And Diastolic Provider Name and Address Organization Details Last Updated DateTime 07/27/2019 152.4 cm 36.7 kg/m2 29320.37 g 124/72 mm[Hg] [facility] 07/27/2019 15:49:02 Social History Question Answer Notes LastModified by Organizat ion Details LastModified Time Tobacco Smoking Status [facility] 09:36:48 Do You Have Any Children? No Information not available 07/28/2019 Does Your Partner Physically Hurt You Or Threaten To Hurt You? No Information not available 06/21/2017 Has Your Partner Forced You To Have Sex Or Perform Sex Acts When You Did Not Want To? No Information not available 06/21/2017 Does Your Partner Insult, Scream At Or Talk Down To You? No Information not available 06/21/2017 Does Your Partner Control You Or Any Part Of Your Life? No Information not available 06/21/2017 Are You Afraid Of Your Partner? No No Partner 09/2021 Information not available 06/21/2017 Drug Use? No Information no t available 06/15/2016 Do You Feel Safe At Home? Yes Information not available 06/15/2016 What Was The Date Of Your Most Recent Tobacco Screening? 10/16/2021 Information not available 10/16/2021 Are You Sexually Active? No Information not available 10/19/2021 How Much Tobacco Do You Smoke? No Information not available 10/16/2021 General Stress Level High Information not available 10/16/2021 Have You Recently Traveled Abroad? No Information not available 10/16/2021 Sex: Unknown Functional Status Question Answer Note LastModified by Organizat ion Details LastModified Time What is your level of alcohol consumption? Occasional Information not available 06/15/2016 Are you currently employed? 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 [employer] 5 to 6 days a week [place] Information not available 07/18/2018 Mental Status None recorded. Family History Relationship Description Onset Age of this Age Resolved Age Notes LastModified by Organization Details LastModified Time Mother No current problems or disability [place] Not available 05/24 14:19:42 Father Malignant neoplasm of lung 0; smoker rbillstromnel son Not available 10/19/2021 19:39:14 Notes:no h/o breast, uterine , ovarian or colon CA Medical History Condition Response Other N *No Diseases or Conditions N Blood clots N Breast Cancer N Colon cancer N Benign breast disease N Depression N Lung Disease N Defects or Inherited Disease N Anesthesia Complications N Headaches/Migraines N Have you ever been on isolation N Anxiety Disorder N Arthritis N HSV N Infertility N Interstitial Cystitis N Abnormal pap N Acid Reflux (GERD) N Cancer N Stroke N Endometriosis N Fibromyalgia N Spina Bifida N HIV N Heart Problems N Sexual Dysfunction N Autoimmune disorder N Kidney or Bladder Problems N Thyroid Problems N GI Problems N Eating Disorder N Anemia N Multiple Sclerosis N Psychiatric Illness N Ovarian Cancer N Diabetes N Blood Transfusions N Bladder disease N History of MRSA N Abnormal Uterine Bleeding N Hyperlipidemia N BrCa positive N Diverticulitis N Abuse/Domestic Violence N Asthma N Hepatitis N Hypertension N Osteoporosis N Thrombophilias N Gynecological History Statement/Question Response Abnormal Pap N Current Control Method Abstinence Date of LMP 09/27/2021 Sexually Active? Yes IPV Screen Done 10/16/2021 STIs/STDs N Sexual Orientation heterosexual HPV Vaccine N Sexual Problems? N Date of Last Pap Smear 07/18/2018 Abnormal Uterine Bleeding Y Last HPV Result Negative Obstetrics History GPAL:G 0 P 0 0 0 0 Past Encounters Encounter ID Performer Location Encounter Start Date Encounter Closed Date Diagnosis/Indication Diagnosis SNOMED-CT Code Diagnosis ICD10 Code Diagnosis IMO Codes Diagnosis Note [id number] [facility] [address] [place] [address] 01/02/2015 00:00:00 [id number] MARIANNE FORREST MD [facility] [address] [place] [address] 06/15/2016 14:03:56 06/15/2016 14:43:57 Gynecologic examination 69373007 Z01.419 35 yo with normal routine manual plate filler exam. Pt desires to continue with current ocp, no hypertensi on, migraines or h/o blood clots. Pt is not currently sexually active adn does nto wish to have STI screening. Pap smear obtained - HPV reflex. Discussed calcium, vitamin D, self breast exam, weight loss.- Pap smear- ocp x 1 year supply Screening for malignant neoplasm of cervix 652241982 Z12.4 Contraception care 48852 5005 Z30.40 [id number] MARIANNE FORREST MD [facility] [address] ,[address] [address] 06/21/2017 14:16:54 06/21/2017 14:44:55 Routine gynecologic examination done 2460844538 9101 Z01.419 Pt with normal manual plate filler exam. Counseled regarding contracept joseph options, patient desires to continue with ocp's but wants to change back to Lo Lo Estrin as having PMDD with current ocp. Advised avoidance of tobacco, alcohol and drugs. Counseled regarding calcium and vitamin D, healthy diet and exercise. Pt given 1 sample of Lo Lo Estrin and card to get at [facility] [place] if not covered by insurance. Pap smear with HPV screen up to date, discussed routine screening every 3 years. Informed to RTO in 1 year for annual exam. Surveillan ce of oral contraception 043116117 Z30.41 [id number] MARIANNE FORREST MD [facility] [address] [place] [address] 07/18/2018 09:23:57 07/18/2018 09:54:41 Gynecologic examination 23272192 Z01.419 Pt with normal manual plate filler exam. Counseled regarding contracept joseph options, patient desires to change to Nexplanon after discussion . Pt advised as not currently sexually active and on ocp's ok to change prior to menses. Advised avoidance of tobacco, alcohol and drugs. Counseled regarding calcium and vitamin D, healthy diet and exercise. Pap smear with HPV screen obtained, aware of 3 year screening guidelines . Pt desires screening for STI's > order sent for gc/ct, HIV, RPR, HCV. Informed to RTO in 1 year for annual exam and for nexplanon placement when desires. Screening for malignant neoplasm of cervix 163106133 Z12.4 Z11.51 Z11.3 Venereal d isease screening 305202235 Z11.3 [id number] MARIANNE FORREST MD [facility] [place] [address] 07/28/2018 15:37:42 07/28/2018 16:16:46 Subcutaneous contraceptive implant present 131561779 Z97.8 Z30.49 [id number] MARIANNE FORREST MD [facility] [place] [address] 10/27/2018 15:44:51 10/27/2018 16:19:41 Subcutaneous contraceptive implant present 054061782 Z97.8 Z30.49 Pt with nexplanon in place. Pt overall happy with device. Per our records, discussed there is a 2 pound weight difference from when it was placed to now. Recommende d continuing to observe, dietary changes. Pt going to keep track of calories. If continues to gain weight or unable to lose weight stated only way to know is to remove nexplanon. Pt to call and have nexplanon removed if desires. RTO annual exam. [id number] MARIANNE FORREST MD [facility] [place] [address] 04/27/2019 14:14:27 04/27/2019 14:44:09 Subcutaneous contraceptive implant present 018181554 Z30.433 Pt with moodiness, irregular bleeding and not currently sexually active > desires nexplanon removal. Nexplanon removed without difficulty . Pt to expectantl y manage and will track her menses. f/u at annual. Aware to use condoms for contracept ion if sexually active. [id number] MARIANNE FORREST MD [facility] [place] [address] 07/27/2019 15:31:04 07/27/2019 16:06:25 Gynecologic examination 65304390 Z01.419 Pt with normal manual plate filler exam. Counseled regarding contracept joseph options, patient satisfied with current method. Advised avoidance of tobacco, alcohol and drugs. Counseled regarding calcium and vitamin D, healthy diet and exercise. Pap smear with HPV screen up to date, aware of 3 year screening guideline. Informed to RTO in 1 year for annual exam. Abnormal u terine bleeding 0528251652 9100 N93.9 Pt with irregular menses since nexplanon removal. Discussed normal cycle length 21-35 days. Recommend expectant management x 1 month, if not improved since 3 months since removal then recommend ultrasound to evaluate for possible polyps, fibroids. Pt had TSH recently with PCP that was normal per her report. Depression screening 171 915224 Z13.31 [id number] MARIANNE FORREST MD [facility] [address],[facility] [address] [place] [address] 06/25/2020 14:08:53 06/25/2020 14:38:00 Initial prescription of oral contraception 993953368 Z30.011 Discussed timing of ocp, effectiven ess, increased risk of blood clots/stro ke. She is also aware to use a back up method for 2 weeks, start on day 1 of menses. DIscussed may have irregular spotting/b leeding. Menstrual period late 84 963726 N92.6 Pt with negative test. Aware if no menses in 1 week to recheck test, if still negative and no menses to call. [id number] MARIANNE FORREST MD [facility] [address],[facility] [address] [place] [address] 10/16/2021 15:18:05 10/16/2021 15:52:57 Gynecologic examination 03856868 Z01.419 Pt with normal manual plate filler exam. Counseled regarding contracept joseph options, patient satisfied with current method. Advised avoidance of tobacco, alcohol and drugs. Counseled regarding calcium and vitamin D, healthy diet and exercise. Pap smear with HPV screen obtained. Informed to RTO in 1 year for annual exam. Screening for malignant neoplasm of cervix 675606274 Z12.4 Depression screening 171 244974 Z13.31 Health Concerns Section Related Observation LastModified by Organization Detai ls LastModified Time None Recorded Concern Status LastModified by Organization Details LastModified Time None Recorded Advance Directives Directive None Recorded Payers Insurance Date Sequence Insurance Name Policy Number Policy Cosme Covered Member ID Cosme Member ID Guarantor Name 07/22/2021 1 [place] [employer] [employer] [id number] Clare Yousif [id number] Clare Yousif 11/09/2022 1 [employer] () Clare Yousif [id number] Clare Yousif Notes Date Note Type Note Provider Name and Address Organization Details Recorded Time 10/27/2018 text/html Clare presents for follow up after nexplanon insertion. Nexplanon inserted 07/28/2018. She reports having had bleeding for 3 weeks then stopped. She is happy with bleeding/pain with menses. She does report she feels like she has gained 10 pounds since having it placed and also had increased acne and emotional. She states the acne and emotional abnormalities have resolved, but still concerned about weight. She does work-out 6 days a week. MARIANNE FORREST MD [address] [place] [address], [address] [place] [address], [id number], [facility] 10/28/2018 11:49:57 04/27/2019 text/html ROS as noted in the HPI 38 yo presents for nexplanon removal. Pt states that she had no menses then has had irregular daily spotting for the last two months. She also reports feeling very emotional, crying spontaneously. She was able to lose some weight with diet and exercise. She is not sexually active and wants a trial without hormones. Pt has been on some form of hormones for the past 20 years. MARIANNE FORREST MD [address] [place] [address], [address] [place], [address], [facility] 04/27/2019 15:01:30 07/27/2019 text/html [facility] Annual GYNRe ported by PatientHistoryFor history, patient reportsno gynecologic complaints.Genitourina ry symptomsFor vulva, patient reportsno genital lesion. For vagina, patient reportsnormal vaginal discharge. For menstrual cycle, (since nexplanon removed (04/2019), cycle every 2 weeks).Breast symptomsFor breast, patient reportsno breast pain,no breast lump, andno nipple discharge.Contraceptio nFor current contraception, patient reportssatisfied with current contraception (abstinence)andcondoms (no current partner).Endocrine symptomsFor sexual activity, patient reportsno sexual complaints (> no pain or pcb)andsexually active yes __. For menopausal symptoms, patient reportsno menopausal symptomsandnormal vaginal lubrication.Psychologi kandice symptomsFor psychological symptoms, patient reportsno depression,no anxiety, andno pmdd.Preventative measuresFor preventive measures, patient reportsencourage self breast examination,encourage regular exercise,encourage no tobacco use, andfollowed with yearly pap smears (> as indicated). MARIANNE FORREST MD [address] [facility], [address] [place], [address], [facility] 07/28/2019 08:54:07 06/25/2020 text/html ROS as noted in the HPI 39 yo with new partner presents to discuss starting contraception. Pt previously had a bad reaction to nexplanon. She did well with Lo-Lo Estrin, but very frustrated by insurance issues with that pill. She is not sure what form of contraception she'd like to start. She is 4 days late for menses, but took negative home test 2 days ago. Pt without nausea, breast tenderness or fatigue. MARIANNE FORREST MD [address] [facility], [address] [facility], [place], [address], [facility] 06/25/2020 15:30:46 10/16/2021 text/html [facility] Annual GYNRe ported by PatientHistoryFor history, patient reportsno gynecologic complaintsandno change in interval history.Genitourinary symptomsFor menstrual cycle, patient reportsnormal menses. For urinary symptoms, patient reportsno incontinence. For vulva, patient reportsno genital lesion. For vagina, patient reportsnormal vaginal discharge.Breast symptomsFor breast, patient reportsno breast pain,no breast lump, andno nipple discharge.Contraceptio nFor current contraception, patient reportssatisfied with current contraception (abstinence)andcondoms (no current partner).Endocrine symptomsFor sexual activity, patient reportsno sexual complaints (> no pain or pcb)andsexually active yes __. For menopausal symptoms, patient reportsno menopausal symptomsandnormal vaginal lubrication.Psychologi kandice symptomsFor psychological symptoms, patient reportsno depression,no anxiety, andno pmdd.Preventative measuresFor preventive measures, patient reportsencourage self breast examination,encourage regular exercise,encourage no tobacco use, andfollowed with yearly pap smears (> as indicated). MARIANNE FORREST MD [address] [place] [address], [address] Floor, [place], [address], [place] [facility] 10/19/2021 19:41:33 OBGyn Episode No OBEpisode recorded.
--- OUTSIDE RECORDS SUMMARY | 2025-07-04 18:14 | XMS_ITS | Clinical Summary ---
Author Organization [facility] Address [address] [place] [address] Care Team Providers Care Toter Name Role Phone Sobeida Man MD Unavailable [phone] Pcp, No Primary Care Provider Unavailabl [...] Take 1 tablet by mouth daily. Active Garland 3 1000 MG Cap capsule Take 1,000 [...] 08/27/2014 Pain in joint, lower leg 07/26/2014 Immunizations Immunization Administration Dates Next Due Covid-19 [...] of 3 - 19+ 3-dose series) 2001 DTaP/Tdap/Td Vaccines (1 - Tdap) 03/21/2018 03/20/2018 Mammogram 2022 Pap Smear (Ages 21-65) 10/16/2024 10/16/2021 Influenza Vaccine 03/23/2025 07/06/2020 COVID-19 Vaccine (3 - 2024-2 6 season) 2025 07/29/2021, 12/31/2020 HPV Vaccines (No Doses Required) Completed Pneumococcal Vaccine: Pediatric (0-5 Years) and At-Risk Patients (6 to 49 Years) Aged Out No longer eligible b ased on patient's age to complete this topic Procedures Procedure Name Priority Date/Time Associated Diagnosis Comments THINPREP PAP(RETANNED LEATHER ROLLER) HPV SCR RFX HPV 16,18/45 Routine 10/16/2021 12:00 AM EST from Last 3 Months or Most Recently Relevant to Health Maintenance Results * ThinPrep Pap(Hammer Driver) HPV Scr Rfx HPV 16,18/45 (10/16/2021 12:00 AM EST) Report Report [facility] Comment: Final Gynecological Cytology Report ThinPrep Pap Test, HPV Screen, Reflex HPV Genotype SPECIMEN ADEQUACY: SATISFACTORY FOR EVALUATION; ENDOCERVICAL/TRANSFORMATION ZONE COMPONENT ABSENT/INSUFFICIENT . INTERPRETATION: NEGATIVE FOR INTRAEPITHELIAL LESION OR MALIGNANCY. Electronically Signed: Aaron Sr CT (ASCP) CLINICAL INFORMATION: LMP: 09/27/2021 Clinical History: RTN Specimen Source: Cervix, Endocervix HPV RESULTS: HPV mRNA E6/E7 [id number] Approved: 10/18/21 Negative REF RANGE: Negative CPT Codes: 62410 ICD Codes: Z12.4 Other 10/16/2021 10/17/2021 8:0 9 PM EST us Sobeida Man MD LAB AMB PATH/CYTO ORDERABLES Fi nal Result [facility] [address] [place], [place] from Last 3 Months or Most Recently Relevant to Health Maintenance Insurance [facility] Care Teams Toter Relationship Specialty Start Date End Date Pcp, No PCP - General General Medicine 05/08/25 Sobeida Man MD [address] [place] [address] Customer Care Professional Obstetrics and Gynecology 03/23/19
--- OUTSIDE RECORDS SUMMARY | 2025-07-04 18:14 | XMS_ITS | Encounter Summary ---
Author Organization [address] [address] Care Team Providers Care Electronic Intelligence Officer Name Role Phone Kellee Mccarthy Primary Care Provider [phone] Brigette Rodgers APRN Primary Care Provider [phone] Sobeida Man MD Unavailable [phone] Pcp, No Primary Care Provider Unavailabl e Encounter Details Date Type Department Care Team (Late st Contact Info) Description 07/18/2017 Scanned Document [address] [place] [address] Provider, Generic Social History Tobacco [...] on filedocumented in this encounter Care Teams Electronic Intelligence Officer Relationship Specialty Start Date End Date Kellee Mccarthy PA PCP - General Internal Medicine 01/19/17 11/23/17 Brigette Rodgers APRN [address] [place] [address] PCP - General Family Medicine 11/24/17 11/30/24 Pcp, No PCP - General General Medicine 05/08/25 Sobeida Man MD [address] [place] [address] Building Surveyor Obstetrics and Gynecology 03/23/19 documented as of this encounter
--- OUTSIDE RECORDS SUMMARY | 2025-07-04 18:14 | XMS_ITS | Clinical Summary ---
Author Organization [facility] Address [address] [place], [place] [id number] Care Team Providers Care Vibrating Screed Operator Name Role Phone Unavailable Primary Care Provider Unavailabl e Social History Tobacco Use Types Packs/Day Years Used Date Smoking Tobacco: Never Assessed Sex and Gender Information Value Date Recorded Sex Assigned at Not on file Gender Identity Not on file Sexual Orientation Not on file Plan of Treatment Not on file
== END 2025-07-04 14:52 | disposition home or self-care (01) ==
LOC: HO.MAMMO 14:51
PROVIDERS: PCP Student in an Organized Health Care Education/Training Program; Visit Provider Student in an Organized Health Care Education/Training Program
DX: Z12.31 Encounter for screening mammogram for malignant neoplasm of breast (principal)
CPT/HCPCS: 77063; 77067

== ENCOUNTER → 2025-07-04 15:00 | Outpatient (BNV) | payer OTHER, SELFPAY | PROVIDERS: PCP Student in an Organized Health Care Education/Training Program; Visit Provider Internal Medicine | DX: Z12.31 Encounter for screening mammogram for malignant neoplasm of breast (principal) | CPT/HCPCS: 77063; 77067 ==

== ENCOUNTER 2025-08-01 13:18 | Outpatient (AMB) | payer OTHER, SELFPAY ==
--- NOTE | 2025-08-01 13:26 | A.OFFVIS_ITS ---
VS Expanded 08/01/25 13:27 08/06/25 13:47 Height 5 ft 1.8 in 5 ft 1.8 in Weight 200 lb 200 lb BMI 36.8 36.8 Intake Visit Reasons: Obesity Allergies erythromycin base (From Erythrocin) Allergy (Mild, Verified 05/31/25 13:49) Hives Nutrition Presentation Details: Pt presents for MNT for obesity Patient reports working on a meal routine of protein shakes and salads 5am : Protein Shake ( nuri ) 9 kinyarwanda yogurt / fruit 12: salad with chicken and dark york cee/4 2pm: protein bar energery drink works out, 30 min to 1 hour 3 to 4 times a week dinner: ground turkey rice , curtis 8:30 pm BS Monitoring Most Recent Diabetes Results: Cholesterol, (<200) 201 mg/dL H 05/17/25 HDL Cholesterol, (>40) 55 mg/dL 05/17/25 Triglycerides, (<150) 115 mg/dL 05/17/25 Creatinine, (0.5-1.4) 0.75 mg/dL 05/17/25 BUN, (9-16) 13 mg/dL 05/17/25 Sodium, (135-145) 140 mmol/L 05/17/25 Potassium, (3.3-5.1) 4.7 mmol/L 05/17/25 Chloride, (96-108) 106 mmol/L 05/17/25 Carbon Dioxide, (22-29) 27 mmol/L 05/17/25 Calcium, (8.4-10.2) 9.5 mg/dL 05/17/25 AST, (5-31) 29 U/L 05/17/25 ALT, (0-31) 28 U/L 05/17/25 Total Protein, (6.5-8.0) 7.3 g/dL 05/17/25 Albumin, (3.5-5.0) 4.5 g/dL 05/17/25 KWK-Kuqglhi-Cq.Jeor Equation Height: 5 ft 1.8 in Weight: 200 lb Resting Metabolic Rate: 1519.70 Calculated Activity Level: Sedentary Calories Needed to Maintain Weight: 1823.64 Diagnosis Nutrition problem #1: food nutri know defi As related to (etiology) #1: diagnosis As evidenced by (sign/symptom) #1: knowledge deficit of diet [facility] Medical History Knee pain Left knee pain Osteoarthritis Class 2 obesity Snoring Fatigue Family History Father Diabetes Cancer Mother No problems noted. Social History Housing: Condominium Alcohol intake: current Alcohol intake frequency: does not drink Patient Tobacco Use Status: Never used Tobacco service: Yes Current occupational status: employed Cognitive needs: No Hearing needs: No Vision needs: No Assessment & Plan Assessment & Plan (1) Class 2 obesity: Code(s): E66.812 - Obesity, class 2 Category: Medical Plan: current wt: 91 kg ( 08/11 ) est kcal needs as per MSJ: 1800 a day est protein needs as per 1 g/kg BW: 90 est fluid needs as per 30 ml/kg BW: 2700 Recommended fiber > 12 g /day and gradually increase up to 25-28 g /day or as tolerated Nutrition topics discussed : Reviewed (R), Pt verbalized understanding (V) , not applicable (N/A) R, : Healthy Plate Method Concept: R, V, N/A: Carbohydrates: food sources of carbohydrates, relationship of carbohydrates to blood glucose, fatty liver GI health. Recommended total amount of carbohydrates per meals and snack. Differences between simple carbohydrates and complex carbohydrates R, V, N/A: Lean protein foods including vegan , vegetarian sources of protein. Benefits of protein (including but not limited to healing, nutritional value , benefits in weight loss, glucose control R, V, N/A: Fats : Source of fats, benefits of fats. Difference between saturated and unsaturated fats. Saturated fats and its contribution to inflammation R, V, N/A: Fiber: food sources and role of fiber in the diet (including but not limited to its role as a prebiotic, benefits in constipation, role in IBS , role in glucose control and cholesterol level) R, V, N/A: Hydration: role of hydration and prevention of dehydration or over hydration. Foods and water content. R, V, N/A: Vitamins and Minerals in foods and supplements R, V, N/A: Interpreting food labels, including serving size, macronutrients, vitamins, minerals, allergens, ingredient list , % daily value Patient Instructions: Work on mindful eating Work on reducing your carbs to 45 g ore less at dinnertime Keep hydrated by having water with meals and snacks ( 8-11 cups a day) Coding Level of Care Code Nutr Indiv Intake (05870) Diagnoses Class 2 obesity E66.812 Time Spent (min) 30
[2025-08-01 13:27] VITALS: BMI 36.8
--- OUTSIDE RECORDS SUMMARY | 2025-08-01 20:47 | XMS_ITS | Clinical Summary ---
Author Organization [facility] ity Address [address] [place] [address] Care Team Providers Care Education Administrative Assistant Name Role Phone Unavailable Primary Care Provider Unavailabl e Social History Tobacco Use Types Packs/Day Years Used Date Smoking Tobacco: Never Assessed Comments Unknown Sex and Gender Information Value Date Recorded Sex Assigned at Not on file Legal Sex Female 11:28 AM EST Gender Identity Not on file Sexual Orientation Not on file Plan of Treatment Health Maintenance Due Date Last Done Comments Breast Cancer Screening 1982 DTaP,Tdap,and Td Vaccines (1 - Tdap) 2001 Hepatitis B Vaccines (1 of 3 - 19+ 3-dose series) 2001 Cervical Cancer Screening: P ap Smear 2003 HPV Vaccines (1 - 3-dose SCD M series) 2009 HIV Screening 07/16/2024 Hepatitis C Screening 07/16/2024 Social Influencers of Health Screening 07/16/2024 Depression Screening 08/23/2024 COVID-19 Vaccine (1 - 2024-2 6 season) 2025 Influenza Vaccine (#1) 2025 RSV Immunization Adult Patie nts (1 - 1-dose 75+ series) 2057 HIB Vaccines Aged Out No longer eligi ble based on patient's age to complete this topic Hepatitis A Vaccines Aged Out No long er eligible based on patient's age to complete this topic IPV Vaccines Aged Out No longer eligi ble based on patient's age to complete this topic MMR Vaccines Aged Out No longer eligi ble based on patient's age to complete this topic Meningococcal ACWY Vaccine Aged Out N o longer eligible based on patient's age to complete this topic Meningococcal B Vaccine Aged Out No l onger eligible based on patient's age to complete this topic Pneumococcal Vaccine: Pediat rics (0 to 5 Years) and At-Risk Patients (6 to 49 Years) Aged Out No longer eligible b ased on patient's age to complete this topic RSV Immunization Patients Un massiel 20 months Aged Out No longer eligible b ased on patient's age to complete this topic Varicella Vaccines Aged Out No longer eligible based on patient's age to complete this topic
[2025-08-06 13:47] VITALS: BMI 36.8
== END 2025-08-01 14:51 | disposition home or self-care (01) ==
LOC: HO.ENCR 13:19
PROVIDERS: Visit Provider Dietitian, Registered
DX: E66.812 Obesity, class 2 (principal)

== ENCOUNTER → 2025-08-01 13:18 | Outpatient (BNVA) | payer OTHER, SELFPAY | PROVIDERS: Visit Provider Dietitian, Registered | DX: Z71.3 Dietary counseling and surveillance (principal); E66.812 Obesity, class 2 | CPT/HCPCS: 97802 ==